=== PATIENT | female | born 1990 | race Caucasian/White ===

== ENCOUNTER 2021-05-19 13:33 | Day surgery (SDC) | payer OTHER ==
[2021-05-19] MEDS ORDERED: Depo-Medrol 40 MG/ML IM ONE (13:34)
[2021-05-19] MEDS ORDERED: Sodium Chloride 0.9% 10 ML FLUSH Syringe IJ ONE (13:34)
[2021-05-19] MEDS ORDERED: VERSED 5 MG/5 ML ONE (16:12)
[2021-05-19] MEDS ORDERED: DIPRIVAN 200 MG/20 ML IV ONE ×2 (16:43→16:53)
[2021-05-19] MEDS ORDERED: TORAdol 30 mg Injection ONE (17:15)
[2021-05-19] MEDS ORDERED: Lactated Ringers 1,000 ML IV ONE (17:16)
--- NOTE | 2021-05-19 22:18 | XRAY ---
Indication: Right L4-S1 transforaminal HUSSEIN. Intraoperative fluoroscopy provided for 59 seconds. 4 digital spot image submitted for interpretation demonstrates posterior needle tips projecting over the expected right L5 and S1 nerve roots. Small amount of contrast injected for needle tip placement. Correlate with intraoperative findings/report.
--- NOTE | 2021-05-20 09:03 | XRAY ---
59 seconds of fluoroscopy was used in surgery for a right L4-S1 transforaminal HUSSEIN.
== END 2021-05-19 17:12 | disposition home or self-care (01) ==
LOC: SDC-PAIN 13:33
PROVIDERS: ATTEND Psychiatry & Neurology Pain Medicine
DX: M54.16 Radiculopathy, lumbar region (principal); Z79.899 Other long term (current) drug therapy
CPT/HCPCS: 64483; 64484; 72100; 77003; 84703; J1030; J1885; J2250; J2704; Q9966

== ENCOUNTER 2021-06-23 08:05 | Day surgery (SDC) | payer OTHER ==
[2021-06-23] MEDS ORDERED: Depo-Medrol 40 MG/ML IM ONE (08:06)
[2021-06-23] MEDS ORDERED: DIPRIVAN 200 MG/20 ML IV ONE (08:06)
[2021-06-23] MEDS ORDERED: Sodium Chloride 0.9% 10 ML FLUSH Syringe IJ ONE (08:06)
[2021-06-23] MEDS ORDERED: Versed 2 MG/2 ML Injection ONE (09:18)
[2021-06-23] MEDS ORDERED: Lactated Ringers 1,000 ML IV ONE (09:40)
[2021-06-23] MEDS ORDERED: TORAdol 30 mg Injection ONE (10:19)
--- NOTE | 2021-06-23 12:29 | XRAY ---
Indication: Right L3-S1 transforaminal HUSSEIN. Intraoperative fluoroscopy provided for 31 seconds. 4 digital spot image submitted for interpretation demonstrates posterior needle tips projecting over the expected right L3 and L4 nerve roots. Small amount of contrast injected for needle tip placement. Correlate with intraoperative findings/report.
--- NOTE | 2021-06-23 12:44 | XRAY ---
31 seconds fluoroscopy time in surgery for right L3-L5 transforaminal HUSSEIN.
== END 2021-06-23 10:22 | disposition home or self-care (01) ==
LOC: SDC-PAIN 08:05
PROVIDERS: ATTEND Psychiatry & Neurology Pain Medicine
DX: M54.16 Radiculopathy, lumbar region (principal); Z79.899 Other long term (current) drug therapy
CPT/HCPCS: 64483; 64484; 72100; 77003; 84703; J1030; J1885; J2250; J2704; Q9966